=== PATIENT | female | born 1990 | race Caucasian/White ===

== ENCOUNTER 2018-01-06 16:39 | Emergency (ER) | payer SELFPAY, OTHER ==
[2018-01-06 17:45] LABS: URINE HCG POC HCG NEGATIVE (Negative)
[2018-01-06] MEDS: AZITHROMYCIN 250 MG TABLET. PO ×2 (17:55)
[2018-01-06] MEDS: metroNIDAZOLE 500 MG TABLET PO ×2 (17:55)
[2018-01-06] MEDS: cefTRIAXone IM 250 MG VIAL IM ×2 (17:56)
== END 2018-01-06 18:00 | disposition home or self-care (01) ==
LOC: ER 16:39
DX: Z11.3 Encounter for screening for infections with a predominantly sexual mode of transmission (principal); Z85.9 Personal history of malignant neoplasm, unspecified
CPT/HCPCS: 81025; 96372; 99283-25; J0696; Q0144